=== PATIENT | male | born 1955 | race Two or more races ===

== ENCOUNTER 2022-07-19 06:00 | Day surgery (SDC) | payer OTHER ==
[~2022-07-19 06:00] MED LIST: SIMVASTATIN10 MG PO; TIROSINT125 MCG PO; [UNRECOGNIZED DRUG - OTHER]
[2022-07-19] MEDS ORDERED: KETO10TA2 PO (09:34)
[2022-07-19] MEDS ORDERED: TRAMADOL HCL50 MG PO (09:34)
[2022-07-19] MEDS ORDERED: TYLENOL ARTHRI650 MG PO (09:34)
[2022-07-19] MEDS ORDERED: MIRALAX17 GM PO (09:34)
== END 2022-07-19 12:25 | disposition home or self-care (01) ==
LOC: CIR.AMB 06:00
PROVIDERS: ATTEND Surgery
DX: K40.90 Unilateral inguinal hernia, without obstruction or gangrene, not specified as recurrent (principal); K42.9 Umbilical hernia without obstruction or gangrene; D17.79 Benign lipomatous neoplasm of other sites; E03.9 Hypothyroidism, unspecified; Z88.2 Allergy status to sulfonamides; Z20.822 Contact with and (suspected) exposure to COVID-19
CPT/HCPCS: 49650; 49591; C1781